=== PATIENT | female | born 1980 | race Native Hawaiian/Other Pacific Islander ===

== ENCOUNTER 2017-05-02 14:28 | Emergency (ER) | payer OTHER ==
[~2017-05-02] VITALS: Ht 162.6 cm; Wt 72.6 kg
[~2017-05-02 14:28] MED LIST: ACET-655 PO; CYCL10TA35 PO; DIOVAN320 MG PO; FLUO10CA2 PO; GABA300C2 PO; RISP1TAB PO; TRAZ100T OR
[2017-05-02 14:39] VITALS: TEMP 99.4
[2017-05-02] MEDS ORDERED: LISI20TA31 PO (14:39)
[2017-05-02 15:04] LABS: PLATELET COUNT 323 K/uL (152-353)
[2017-05-02 15:11] LABS: POTASSIUM 3.6 mmol/L (3.6-5.2); SODIUM 141 mmol/L (136-145)
[2017-05-02 17:18] VITALS: BP 148/90
== END 2017-05-02 15:00 | disposition home or self-care (01) ==
LOC: ED 14:28
DX: G43.809 Other migraine, not intractable, without status migrainosus (principal); I10 Essential (primary) hypertension
CPT/HCPCS: 80053; 85027; 96374; 96375; 96376; 99284; J1100; J1200; J1885; J2405; J2550

== ENCOUNTER 2021-08-31 21:45 | Emergency (ER) | payer OTHER ==
[~2021-08-31] VITALS: Ht 160 cm; Wt 81.6 kg
[~2021-08-31 21:45] MED LIST changes: +LISI20TA31 PO
[2021-08-31 22:30] LABS: PLATELET COUNT 240 K/uL (152-353)
[2021-08-31 22:34] LABS: POTASSIUM 3.6 mmol/L (3.6-5.2)
[2021-08-31 22:49] LABS: PARTIAL THROMBOPLASTIN TIME 24.5 SECONDS (24.5-33.6)
[2021-08-31] MEDS ORDERED: CLONIDINE0.3 MG PO (23:49)
[2021-09-01 00:10] VITALS: BP 174/96; TEMP 98.2
== END 2021-09-01 00:10 | disposition home or self-care (01) ==
LOC: ED 21:45
PROVIDERS: Hospitalist
DX: I16.0 Hypertensive urgency (principal); G44.209 Tension-type headache, unspecified, not intractable
CPT/HCPCS: 36415; 80053; 81000; 82550; 83880; 84484; 85027; 85610; 85730; 93005; 96372; 96374; 99284; J0360; J2270; J2405

== ENCOUNTER 2021-10-30 00:13 | Emergency (ER) | payer OTHER ==
[~2021-10-30] VITALS: Ht 160 cm; Wt 76.2 kg
[~2021-10-30 00:13] MED LIST changes: +CLONIDINE0.3 MG PO
[2021-10-30 00:49] LABS: PLATELET COUNT 220 K/uL (152-353)
[2021-10-30 00:57] LABS: POTASSIUM 3.2 mmol/L (3.6-5.2)
[2021-10-30 01:09] LABS: PARTIAL THROMBOPLASTIN TIME 24.5 SECONDS (24.5-33.6)
[2021-10-30 01:42] VITALS: BP 172/91; TEMP 98.4
== END 2021-10-30 01:42 | disposition home or self-care (01) ==
LOC: ED 00:13
PROVIDERS: Hospitalist
DX: I16.0 Hypertensive urgency (principal); G44.209 Tension-type headache, unspecified, not intractable; E11.65 Type 2 diabetes mellitus with hyperglycemia; F17.210 Nicotine dependence, cigarettes, uncomplicated
CPT/HCPCS: 36415; 80053; 81000; 82550; 83880; 84484; 85027; 85610; 85730; 93005; 96360; 96375; 99284; J0360; J1815; J2405

== ENCOUNTER 2022-02-08 18:19 | Emergency (ER) | payer OTHER ==
[~2022-02-08] VITALS: Ht 160 cm; Wt 73.5 kg
[2022-02-08 19:38] LABS: PLATELET COUNT 260 K/uL (152-353)
[2022-02-08 21:20] VITALS: BP 149/85; TEMP 98.7
== END 2022-02-08 21:20 | disposition home or self-care (01) ==
LOC: ED 18:19
PROVIDERS: Emergency Medicine
DX: K52.89 Other specified noninfective gastroenteritis and colitis (principal); R16.0 Hepatomegaly, not elsewhere classified
CPT/HCPCS: 36415; 80053; 81000; 83690; 85027; 87086; 87088; 96360; 96374; 96375; 99284; J2270; J2405; Q9963

== ENCOUNTER 2022-03-10 09:14 | Outpatient (CLI) | payer OTHER | END 2022-03-10 19:40 | disposition home or self-care (01) | LOC: US 09:14 | PROVIDERS: ATTEND Family Medicine | DX: R10.9 Unspecified abdominal pain (principal); R79.89 Other specified abnormal findings of blood chemistry; Z83.49 Family history of other endocrine, nutritional and metabolic diseases ==

== ENCOUNTER 2022-05-15 14:02 | Emergency (ER) | payer OTHER ==
[~2022-05-15] VITALS: Ht 160 cm; Wt 73.5 kg
[2022-05-15 14:12] VITALS: TEMP 97.8
[2022-05-15 14:34] LABS: PLATELET COUNT 316 K/uL (152-353)
[2022-05-15 14:43] LABS: POTASSIUM 4.2 mmol/L (3.6-5.2)
[2022-05-15 14:50] VITALS: BP 172/84
[2022-05-15] MEDS ORDERED: CLON0.3T7 PO (15:00)
[2022-05-15 15:04] LABS: PARTIAL THROMBOPLASTIN TIME 26.3 SECONDS (24.5-33.6)
== END 2022-05-15 15:24 | disposition home or self-care (01) ==
LOC: ED 14:02
PROVIDERS: Hospitalist
DX: I16.0 Hypertensive urgency (principal)
CPT/HCPCS: 80053; 82550; 83880; 84484; 85027; 85610; 85730; 93005; 99283

== ENCOUNTER 2022-06-18 20:44 | Emergency (ER) | payer OTHER ==
[~2022-06-18] VITALS: Ht 160 cm; Wt 86.2 kg
[~2022-06-18 20:44] MED LIST changes: +CLON0.3T7 PO
[2022-06-18 21:04] VITALS: TEMP 98.1
[2022-06-18 21:58] LABS: POTASSIUM 4.1 mmol/L (3.6-5.2)
[2022-06-18 22:02] LABS: PLATELET COUNT 339 K/uL (152-353)
[2022-06-19] VITALS: BP 188/68
== END 2022-06-19 | disposition home or self-care (01) ==
LOC: ED 20:44
PROVIDERS: Emergency Medicine
DX: R10.84 Generalized abdominal pain (principal); I10 Essential (primary) hypertension; E11.65 Type 2 diabetes mellitus with hyperglycemia; Z79.4 Long term (current) use of insulin; J18.9 Pneumonia, unspecified organism
CPT/HCPCS: 36415; 80053; 80307; 81002; 82550; 84484; 85027; 85610; 85730; 93005; 96365; 96375; 99284; J2175; J2405; J3490

== ENCOUNTER 2022-07-06 09:45 | Emergency (ER) | payer OTHER ==
[~2022-07-06] VITALS: Ht 162.6 cm; Wt 68.9 kg
[2022-07-06 10:26] LABS: PLATELET COUNT 274 K/uL (152-353)
[2022-07-06 10:37] LABS: POTASSIUM 4.3 mmol/L (3.6-5.2)
[2022-07-06 12:01] VITALS: BP 165/86; TEMP 97.1
[2022-07-07] MEDS ORDERED: CLONIDINE0.3 MG PO (14:51)
[2022-07-07] MEDS ORDERED: PERCOCET1 TA3 PO (14:52)
[2022-07-07] MEDS ORDERED: GABA300C2 PO (14:53)
[2022-07-07] MEDS ORDERED: PANTOPRAZOLE 40MG TA PO (14:53)
[2022-07-07] MEDS ORDERED: NOVOLOG FL100 UNIT/M SC (14:54)
[2022-07-07] MEDS ORDERED: BASAGLAR K100 UNIT/M SC (14:55)
[2022-07-07] MEDS ORDERED: ONDA4TAB3 PO (14:55)
[2022-07-07] MEDS ORDERED: QUET25TA2 PO (14:56)
[2022-07-07] MEDS ORDERED: ESCITALOPRAM10 MG PO (14:57)
[2022-07-07] MEDS ORDERED: NITR0.4S2 SL (14:58)
[2022-07-07] MEDS ORDERED: METO100T37 PO (15:01)
[2022-07-07] MEDS ORDERED: TYLENOL325 MG PO (15:02)
== END 2022-07-06 12:01 | disposition home or self-care (01) ==
LOC: ED 09:45
PROVIDERS: Emergency Medicine Emergency Medical Services
DX: I10 Essential (primary) hypertension (principal); L25.9 Unspecified contact dermatitis, unspecified cause; J40 Bronchitis, not specified as acute or chronic; F17.210 Nicotine dependence, cigarettes, uncomplicated
CPT/HCPCS: 36415; 80048; 80307; 81002; 83735; 85007; 85027; 93005; 96360; 96365; 96375; 99284; J0360; J0696; J1200; J2930

== ENCOUNTER 2022-09-18 08:18 | Observation (INO) | payer OTHER ==
[2022-09-18] VITALS (7 sets, daily range): BP systolic 177–235; BP diastolic 96–120; TEMP 97.8–99.2; Ht 165.1 cm; Wt 84.1 kg
[~2022-09-18] VITALS: Ht 165.1 cm; Wt 84.1 kg
[~2022-09-18 08:18] MED LIST changes: +BASAGLAR K100 UNIT/M SC; +ESCITALOPRAM10 MG PO; +METO100T37 PO; +NITR0.4S2 SL; +NOVOLOG FL100 UNIT/M SC; +ONDA4TAB3 PO; +PANTOPRAZOLE 40MG TA PO; +PERCOCET1 TA3 PO; +QUET25TA2 PO; +TYLENOL325 MG PO
[2022-09-18 09:22] LABS: PLATELET COUNT 288 K/uL (152-353)
[2022-09-18 09:31] LABS: POTASSIUM 3.6 mmol/L (3.6-5.2)
[2022-09-18] MEDS ORDERED: HYDR25TA60 PO (14:44)
[2022-09-18] MEDS ORDERED: VALSARTAN320 MG PO (14:44)
[2022-09-18] MEDS ORDERED: ENALAPRIL10 MG PO (14:45)
[2022-09-18] MEDS ORDERED: MINO10TA PO (14:46)
[2022-09-19] VITALS (7 sets, daily range): BP systolic 156–225; BP diastolic 87–127; TEMP 98.4–98.8
[2022-09-20 04:22] VITALS: BP 134/82; TEMP 98.5
[2022-09-20 05:40] LABS: PLATELET COUNT 285 K/uL (152-353)
[2022-09-20 05:45] LABS: POTASSIUM 2.7 mmol/L (3.6-5.2)
[2022-09-20 08:20] VITALS: BP 120/72; TEMP 98.6
[2022-09-20 12:20] VITALS: BP 140/84; TEMP 98.9
[2022-09-20] MEDS ORDERED: NORVASC 5MG TAB PO (13:06)
[2022-09-20] MEDS ORDERED: FAMOTIDINE20 MG PO (13:07)
[2022-09-20] MEDS ORDERED: CLON0.1T16 PO (13:07)
[2022-09-20] MEDS ORDERED: HYDR25TA57 PO (13:09)
[2022-09-20] MEDS ORDERED: METO50TA27 PO (13:10)
[2022-09-20] MEDS ORDERED: K-TAB20 MEQ PO (13:16)
== END 2022-09-20 15:21 | disposition home or self-care (01) ==
LOC: ED 08:18 → MED/SURG 09:58
PROVIDERS: Family Medicine; ADMIT Internal Medicine; ATTEND Internal Medicine
DX: I10 Essential (primary) hypertension (principal); E11.65 Type 2 diabetes mellitus with hyperglycemia; E87.6 Hypokalemia; E83.42 Hypomagnesemia; F32.A Depression, unspecified; E74.04 McArdle disease; G89.4 Chronic pain syndrome; R51.9 Headache, unspecified; E78.49 Other hyperlipidemia; K21.9 Gastro-esophageal reflux disease without esophagitis
CPT/HCPCS: 36415; 80048; 80053; 80307; 81002; 81025; 82150; 82550; 82947; 82948; 83690; 83735; 84484; 85027; 85379; 85610; 85730; 87502; 87635; 93005; 96367; 96372; 96374; 96375; 96376; 99220; 99284; G0378; J0360; J1650; J1815; J2270; J2550; J3490; U0003

== ENCOUNTER 2022-09-27 09:47 | Emergency (ER) | payer OTHER ==
[~2022-09-27] VITALS: Ht 165.1 cm; Wt 83.9 kg
[~2022-09-27 09:47] MED LIST changes: +CLON0.1T16 PO; +ENALAPRIL10 MG PO; +FAMOTIDINE20 MG PO; +HYDR25TA57 PO; +HYDR25TA60 PO; +K-TAB20 MEQ PO; +METO50TA27 PO; +MINO10TA PO; +NORVASC 5MG TAB PO; +VALSARTAN320 MG PO
[2022-09-27 09:50] VITALS: TEMP 98.5
[2022-09-27 10:54] LABS: PLATELET COUNT 261 K/uL (152-353)
[2022-09-27 10:55] LABS: POTASSIUM 3.8 mmol/L (3.6-5.2)
[2022-09-27 12:24] VITALS: BP 178/96
== END 2022-09-27 12:24 | disposition home or self-care (01) ==
LOC: ED 09:47
PROVIDERS: Emergency Medicine
DX: I10 Essential (primary) hypertension (principal); Z91.14 Patient's other noncompliance with medication regimen
CPT/HCPCS: 36415; 80053; 80307; 81002; 85027; 93005; 99283

== ENCOUNTER 2022-11-07 08:59 | Emergency (ER) | payer OTHER ==
[~2022-11-07] VITALS: Ht 162.6 cm; Wt 70.8 kg
[2022-11-07 09:05] VITALS: BP 122/66; TEMP 98.6
[2022-11-07 09:50] LABS: PLATELET COUNT 252 K/uL (152-353)
[2022-11-07 09:51] LABS: POTASSIUM 3.6 mmol/L (3.6-5.2)
== END 2022-11-07 09:59 | disposition home or self-care (01) ==
LOC: ED 08:59
PROVIDERS: Emergency Medicine
DX: I10 Essential (primary) hypertension (principal); Z76.0 Encounter for issue of repeat prescription; E11.65 Type 2 diabetes mellitus with hyperglycemia; Z79.4 Long term (current) use of insulin
CPT/HCPCS: 36415; 80048; 85027; 93005; 99283

== ENCOUNTER 2023-01-03 14:16 | Emergency (ER) | payer OTHER ==
[~2023-01-03] VITALS: Ht 162.6 cm; Wt 72.6 kg
[2023-01-03 14:22] VITALS: TEMP 98.9
[2023-01-03 14:57] VITALS: BP 157/96
== END 2023-01-03 14:57 | disposition home or self-care (01) ==
LOC: ED 14:16
DX: I16.0 Hypertensive urgency (principal); F17.290 Nicotine dependence, other tobacco product, uncomplicated
CPT/HCPCS: 99282

== ENCOUNTER 2023-01-06 14:29 | Emergency (ER) | payer OTHER ==
[~2023-01-06] VITALS: Ht 162.6 cm; Wt 73.5 kg
[2023-01-06 14:35] VITALS: BP 151/91; TEMP 98.43
[2023-01-06 16:12] LABS: PLATELET COUNT 188 K/uL (152-353)
[2023-01-06 16:20] LABS: POTASSIUM 3.5 mmol/L (3.6-5.2)
== END 2023-01-06 16:37 | disposition left against medical advice (07) ==
LOC: ED 14:29
PROVIDERS: Emergency Medicine Emergency Medical Services
DX: J20.9 Acute bronchitis, unspecified (principal); J02.9 Acute pharyngitis, unspecified; Z53.29 Procedure and treatment not carried out because of patient's decision for other reasons
CPT/HCPCS: 80053; 80307; 81002; 83735; 84484; 85027; 87502; 87651; 93005; 99283

== ENCOUNTER 2023-01-17 17:53 | Emergency (ER) | payer OTHER ==
[~2023-01-17] VITALS: Ht 162.6 cm; Wt 72.6 kg
[2023-01-17 18:00] VITALS: BP 176/108; TEMP 97.6
== END 2023-01-17 18:53 | disposition home or self-care (01) ==
LOC: ED 17:53
DX: E11.40 Type 2 diabetes mellitus with diabetic neuropathy, unspecified (principal); Z79.4 Long term (current) use of insulin; M54.59 Other low back pain
CPT/HCPCS: 99281

== ENCOUNTER 2023-02-03 08:45 | Outpatient (CLI) | payer OTHER | END 2023-02-03 22:43 | disposition home or self-care (01) | LOC: RAD 08:45 | PROVIDERS: ATTEND Physician Assistant | DX: M54.16 Radiculopathy, lumbar region (principal) ==

== ENCOUNTER 2023-05-08 12:31 | Emergency (ER) | payer OTHER ==
[~2023-05-08] VITALS: Ht 162.6 cm; Wt 85.3 kg
[2023-05-08 12:35] VITALS: TEMP 97.3
[2023-05-08 12:48] VITALS: BP 130/74
== END 2023-05-08 12:50 | disposition home or self-care (01) ==
LOC: ED 12:31
DX: R03.0 Elevated blood-pressure reading, without diagnosis of hypertension (principal); R51.9 Headache, unspecified; Z76.0 Encounter for issue of repeat prescription
CPT/HCPCS: 99282

== ENCOUNTER 2023-07-20 19:13 | Emergency (ER) | payer OTHER ==
[~2023-07-20] VITALS: Ht 162.6 cm; Wt 83.9 kg
[2023-07-20 22:30] VITALS: BP 123/78; TEMP 98.2
== END 2023-07-20 22:30 | disposition home or self-care (01) ==
LOC: ED 19:13
DX: I10 Essential (primary) hypertension (principal)
CPT/HCPCS: 96374; 96375; 99284; J0360; J1885; J2405